=== PATIENT | male | born 1955 | race Caucasian/White ===

== ENCOUNTER → 2016-03-17 | Outpatient (CLI) | payer BC ==
--- NOTE | 2016-03-17 12:37 | DI ---
XR L-SPINE MIN 4 VW,03/17/2016 11:24 AM: Clinical History: Sciatic nerve pain in hip and thigh level. Previous Exam: None at this facility. Findings: AP, lateral and bilateral oblique views of the lumbar spine are obtained, and demonstrate posterior f usion of L5/S1. There is mild loss of intervertebral disc height at L1/2, L2/3 and L3/4. There is also loss of interv ertebral disc height at L5/S1. A few peripheral vascular calcifications are seen. Impression: Degenerative changes of the lumbar spine. Posterior transpedicular fusion of L5/S1.
== END ==
LOC: MOB RAD 11:27
DX: S74.02XA Injury of sciatic nerve at hip and thigh level, left leg, initial encounter (principal); M47.816 Spondylosis without myelopathy or radiculopathy, lumbar region; Z98.1 Arthrodesis status; W01.0XXA Fall on same level from slipping, tripping and stumbling without subsequent striking against object, initial encounter
CPT/HCPCS: 72110